=== PATIENT | female | born 1970 | race Caucasian/White ===

== ENCOUNTER → 2019-11-22 09:11 | Outpatient (CLI) | payer OTHER, SELFPAY ==
[2019-11-22 10:51] LABS: Hemoglobin A1c 5.7 % (4.2-6.3)
[2019-11-22 11:11] LABS: ALB/GLOB Ratio 1.1 RATIO (0.9-2.4); AST(SGOT) 26 U/L (15-37); Alanine Aminotransfer ALT/SGPT 42 U/L (13-56); Alkaline Phosphatase 91 U/L (45-117); Anion Gap 7 (5-15); BUN 19 mg/dL (7-18); Calcium,Total 9.5 mg/dL (8.5-10.1); Chloride 102 mmol/L (98-107); Creatinine, Serum 0.95 mg/dL (0.55-1.02); EST Glomerular Filtration Rate 67 mL/min (>60); Est Glom Filt Rate - Afr Amer 81 mL/min (>60); Ferritin 76 ng/mL (8-252); Globulin 3.8 g/dL (2.2-4.2); Glucose 107 mg/dL (74-106); Iron 67 ug/dL (50-170); Iron Binding Capacity,Total 310 ug/dL (250-450); Potassium 3.1 mmol/L (3.5-5.1); Protein, Total 7.8 g/dL (6.4-8.2); Sodium Level 138 mmol/L (136-145)
== END ==
PROVIDERS: PCP Family Medicine; Referring Provider Family Medicine; Visit Provider Family Medicine
DX: R73.9 Hyperglycemia, unspecified (principal); Z83.49 Family history of other endocrine, nutritional and metabolic diseases
CPT/HCPCS: 36415; 80053; 82728; 83036; 83540; 83550

== ENCOUNTER 2020-08-09 15:59 | Outpatient (RCR) | payer OTHER, SELFPAY | END 2020-08-11 23:59 | LOC: EMPH 15:59 | PROVIDERS: PCP Family Medicine; Visit Provider Family Medicine Geriatric Medicine | DX: Z03.818 Encounter for observation for suspected exposure to other biological agents ruled out (principal) | CPT/HCPCS: 87426 ==

== ENCOUNTER 2020-09-05 13:22 | Outpatient (RCR) | payer OTHER, SELFPAY | END 2020-09-10 23:59 | LOC: EMPH 13:22 | PROVIDERS: PCP Family Medicine; Referring Provider Family Medicine Geriatric Medicine; Visit Provider Family Medicine Geriatric Medicine | DX: Z03.818 Encounter for observation for suspected exposure to other biological agents ruled out (principal) | CPT/HCPCS: 87426 ==

== ENCOUNTER 2020-10-08 15:59 | Outpatient (RCR) | payer OTHER, SELFPAY | END 2020-10-11 23:59 | LOC: EMPH 15:59 | PROVIDERS: PCP Family Medicine; Referring Provider Family Medicine Geriatric Medicine; Visit Provider Family Medicine Geriatric Medicine | DX: Z03.818 Encounter for observation for suspected exposure to other biological agents ruled out (principal) | CPT/HCPCS: 87426 ==

== ENCOUNTER 2020-10-17 11:01 | Outpatient (RCR) | payer OTHER, SELFPAY | END 2020-11-11 23:59 | LOC: EMPH 11:01 | PROVIDERS: PCP Family Medicine; Referring Provider Family Medicine Geriatric Medicine; Visit Provider Family Medicine Geriatric Medicine | DX: Z03.818 Encounter for observation for suspected exposure to other biological agents ruled out (principal) | CPT/HCPCS: 87426 ==

== ENCOUNTER 2021-07-06 20:08 | Day surgery (SDC) | payer OTHER, SELFPAY ==
[2021-07-06 20:09] VITALS: BP 155/91; PULSE 74; RESP 16; TEMP 36.5; O2SAT 100; BMI 37.3
--- NOTE | 2021-07-06 21:30 | CT_ITS ---
STUDY: CT ABDOMEN AND PELVIS WITH CONTRAST REASON FOR EXAM: Female, 51 years old. Right lower quadrant pain RADIATION DOSAGE (If Supplied By Facility): CTDIvol = ( 16.28 ) mGy, DLP = ( 1162.17 ) mGycm TECHNIQUE: Transaxial images were obtained from the dome of the diaphragm to the symphysis pubis without oral contrast. IV 100mL Isovue-300 was administered. Sagittal and coronal images were reconstructed. Individualized dose optimization techniques were used for this CT. COMPARISON: None. FINDINGS: The visualized lung bases are unremarkable. The visualized portions of the heart are within normal limits. Normal liver. There are multiple gallstones. Normal spleen. Normal pancreas. Normal bilateral adrenal glands. Normal right kidney. Normal left kidney. There is a small hiatal hernia. Normal small intestine. Normal colon. The appendix is visualized and appears normal. Normal abdominal aorta. Normal inferior vena cava. Normal retroperitoneum. Normal urinary bladder. Uterus is unremarkable. 9.3 x 9.3 cm thin-walled cyst of the right lower quadrant extends to the right adnexa. No associated inflammation or pelvic free fluid. Intermediate density lesion of the left hemipelvis measures 4.9 x 6.0 cm and abuts the uterine fundus as well as the posterior aspect of the left adnexa. Normal abdominal wall. Normal osseous structures. CT/Abdomen/Pelvis W IV Cont ONLY IMPRESSION: 1. 9.3 cm right adnexal cyst. No pelvic free fluid. 2. Intermediate density lesion of the left adnexa versus uterine fundus. ACR White Paper guidelines (Dacosta, et. al. JACR 2020;17(2):248-254) suggest pelvic ultrasound or pelvic MR to further characterize this cyst. Electronically Signed: Rolo Govea MD (Brooks) at 22:59 EDT , Service support ,
[2021-07-06 21:53] LABS: Absolute Lymphocyte Count 1.53 X10^3/uL (0.83-4.51); Absolute Neutrophil Count 6.1 X10^3/uL (2.0-7.7); Basophil# 0.02 X10^3/uL; Basophil% 0.2 % (0-1); Eosinophil# 0.07 X10^3/uL; Eosinophils% 0.8 % (0-5); Hematocrit 36.5 % (37-47); Hemoglobin 12.7 g/dL (12.0-15.0); Lymphocyte # 1.53 X10^3/ul (0.83-4.51); Lymphocyte % 18.4 % (19-41); Mean Corp Hgb Conc 34.8 g/dL (32-36); Mean Corpuscular Hgb 31.1 pg (27.0-32.0); Mean Corpuscular Volume 89.5 fL (81-99); Mean Platelet Vol. 9.9 fl (6.2-12.0); Monocyte# 0.62 X10^3/uL; Monocyte% 7.4 % (0-10); NRBC Flagged by Analyzer 0 % (0-5); Neutrophil # 6.06 X10^3/uL (2.7-7.7); Neutrophil % 72.8 % (47-70); Platelet Count 240 K/mm3 (150-450); RBC Distribution Width CV 12.6 % (11.6-14.6); RBC Distribution Width SD 41.4 fl (35.1-43.9); Red Blood Count 4.08 M/mm3 (4.2-5.4); White Blood Count 8.3 K/mm3 (4.4-11.0)
[2021-07-06] MEDS: Ondansetron 4 MG/2 ML Vial IV (22:03)
[2021-07-06] MEDS: Morphine 4 MG/ML Syringe IV (22:04)
[2021-07-06 22:06] LABS: ALB/GLOB Ratio 0.9 RATIO (0.9-2.4); AST(SGOT) 26 U/L (15-37); Alanine Aminotransfer ALT/SGPT 36 U/L (13-56); Albumin, Serum 3.8 g/dL (3.2-5.0); Alkaline Phosphatase 100 U/L (45-117); Anion Gap 10 (5-15); BUN 16 mg/dL (7-18); BUN/Creat Ratio 24.1 RATIO (10-20); Calcium,Total 9.3 mg/dL (8.5-10.1); Chloride 88 mmol/L (98-107); Creatinine, Serum 0.66 mg/dL (0.55-1.02); EST Glomerular Filtration Rate 100 mL/min (>60); Est Glom Filt Rate - Afr Amer 121 mL/min (>60); Estimated Creatinine Clearance 91.76 ml/min; Globulin 4.3 g/dL (2.2-4.2); Glucose 113 mg/dL (74-106); Lipase 84 U/L (73-393); Potassium 2.9 mmol/L (3.5-5.1); Protein, Total 8.1 g/dL (6.4-8.2); Sodium Level 123 mmol/L (136-145)
[2021-07-06 22:15] LABS: Mucous, Urine 0 SEEN /hpf (<or=2+); Red Blood Cells-Urine 0 SEEN /hpf (0-5)
[2021-07-06 22:25] LABS: Color, Urine Straw (Yellow); Glucose, Dipstick Normal (Normal); Ketone-Dipstick 50 mg/dl (Negative); Leukocyte Esterase-Dipstick Negative /ul (Negative); Nitrite-Dipstick Negative (Negative); Occult Blood-Urine Negative /ul (Negative); Protein-Dipstick Negative (Negative); Specific Gravity, Urine 1.005 (1.002-1.030); Urine Bilirubin Dipstick Negative (Negative); Urine Clarity Clear (Clear); Urine Urobilinogen Normal (Normal)
[2021-07-06 22:31] LABS: Bacteria RARE /hpf (None Seen); Squamous Epithelial Cells - UA 0-5 SEEN /hpf (5-10); White Blood Cells 0-5 SEEN /hpf (0-5)
[2021-07-06] MEDS: 0.9% Normal Saline 1,000 ML 999 ML IV (22:38)
[2021-07-06] MEDS: HYDROmorphone 0.5 MG/0.5 ML SYRINGE IV (22:38)
--- NOTE | 2021-07-06 23:26 | EDS_ITS ---
HPI History of Present Illness Chief Complaint: Abd Pain Narrative Narrative: 51-year-old female presenting with right lower quadrant abdominal pain. She states is been there for about 24 hours. She has nausea. She denies any vomiting, diarrhea. She states she might be constipated. She states she had a normal soft stool earlier today. She denies any fever or chills. Patient does not have any urinary complaints. Patient states that the pain is progressively become worse. PFSH PFS Medical History Hypertension Home Medications chlorthalidone 25 mg PO DAILY 07/06/21 [History Last Taken Unknown] fexofenadine [Aislinn] 30 mg PO DAILY 07/06/21 [History Last Taken Unknown] melatonin mg PO 07/06/21 [History Last Taken Unknown] metoprolol succinate 50 mg PO DAILY 07/06/21 [History Last Taken Unknown] potassium chloride 20 meq PO DAILY 07/06/21 [History Last Taken Unknown] Allergy/AdvReac Type Severity Reaction Status Date / Time No Known Allergies Allergy Unverified 01/05/19 08:55 Social History Smoking Status: Never smoker ROS ROS ED Constitutional Constitutional ED: Denies chills or fever(s) Eyes Eyes: Denies diplopia ENT ENT ED: Denies rhinorrhea or sore throat Cardiovascular Cardiovascular: Denies chest pain or palpitations Respiratory/Chest Respiratory/Chest: Denies cough or dyspnea Gastrointestinal Gastrointestinal: Reports abdominal pain and nausea; Denies constipation, diarrhea or vomiting Genitourinary Genitourinary ED: Denies dysuria or hematuria Musculoskeletal Musculoskeletal: Denies arthralgias or myalgias Integumentary Denies Abrasions or rash Neurologic Neurologic: Denies headache(s) or paresthesias EXAM Physical Exam Const Vital Signs: 07/06/21 20:09 07/06/21 23:31 Temperature 97.7 F L Temperature Source Temporal Pulse Rate 74 Respiratory Rate 16 18 Blood Pressure 155/91 H 159/86 H Blood Pressure Mean 112 110 Pulse Ox 100 Oxygen Delivery Method Room Air Positive well nourished General Appearance ED: NAD; Negative for pallor HEENT Reports moist mucous membranes Negative for trauma Eyes PERRL and EOMs intact bilaterally Resp normal respiratory effort and clear to auscultation bilaterally Cardio regular rate and regular rhythm GI GI Narrative: Tenderness to palpation in the right lower quadrant. Abdomen is nonperitoneal. Back/Spine no CVA tenderness Neuro oriented x3 and CN's II-XII intact bilaterally Sensorium / Orientation: alert Psych mental status grossly normal Skin no rashes or lesions noted General Skin Exam: Negative for jaundice or pallor MDM MDM MDM Narrative Medical decision making narrative: Patient presenting with right lower quadrant abdominal pain. Her CBC shows that she has no leukocytosis. Hemoglobin hematocrit are normal. Platelets are normal. BMP shows that her potassium is low at 2.9. Patient is also hyponatremic at 123. Glucose is 113. No anion gap. LFTs are normal with exception of bilirubin elevated at 1.3. This is new as well. Lipase is negative. Urinalysis is negative for infection but does show urine ketones. Patient was initially given morphine and Zofran. This did not control her pain. She was given 0.5 mg of Dilaudid and still has not addressed her pain. She is going to get a dose of Dilaudid [address] of the abdomen pelvis shows a 9.3 x 9.3 right adnexal cyst as well as a intermediate density lesion of the left hemipelvis measuring 4.9 x 6.0 cm and abuts the uterine fundus as well as a posterior aspect of the adnexa. It is speculated by radiology that this is either of the adnexa or the fundus it is unclear. Given patient has required multiple doses of pain medication I will ob tain transvaginal ultrasound. Patient will be signed out to imcoming ED provider for follow up on U.S. Impression: 1. Right adnexal cyst 9.3 x 9.3 cm 2. Left hemipelvic cyst 4.9 x 6.0 3. Abdominal pain Lab Data Labs: Laboratory Results - last 24 hr 07/06/21 07/06/21 07/06/21 21:07 21:07 21:07 WBC 8.3 RBC 4.08 L Hgb 12.7 Hct 36.5 L MCV 89.5 MCH 31.1 MCHC 34.8 RDW Std Deviation 41.4 RDW Coeff of Armando 12.6 Plt Count 240 MPV 9.9 Immature Gran % (Auto) 0.400 Neut % (Auto) 72.8 H Lymph % (Auto) 18.4 L [place] % (Auto) 7.4 Eos % (Auto) 0.8 Baso % (Auto) 0.2 Absolute Neuts (auto) 6.1 Absolute Lymphs (auto) 1.53 Nucleated RBC % 0 Sodium 123 L Potassium 2.9 L Chloride 88 L Carbon Dioxide 25.0 Anion Gap 10 BUN 16 Creatinine 0.66 Estim Creat Clear Calc 91.76 Est GFR (MDRD) Af Amer 121 Est GFR (MDRD) Non-Af 100 BUN/Creatinine Ratio 24.1 H Glucose 113 H Calcium 9.3 Magnesium 1.7 Total Bilirubin 1.30 H AST 26 ALT 36 Alkaline Phosphatase 100 Total Protein 8.1 Albumin 3.8 Globulin 4.3 H Albumin/Globulin Ratio 0.9 Lipase 84 Urine Color Urine Clarity Urine pH Ur Specific Spencer Urine Protein Urine Glucose (UA) Urine Ketones Urine Occult Blood Urine Nitrite Urine Bilirubin Urine Urobilinogen Ur Leukocyte Esterase Urine RBC Urine WBC Ur Squamous Epith Cells Urine Bacteria Urine Mucus 07/06/21 22:05 WBC RBC Hgb Hct MCV MCH MCHC RDW Std Deviation RDW Coeff of Armando Plt Count MPV Immature Gran % (Auto) Neut % (Auto) Lymph % (Auto) [place] % (Auto) Eos % (Auto) Baso % (Auto) Absolute Neuts (auto) Absolute Lymphs (auto) Nucleated RBC % Sodium Potassium Chloride Carbon Dioxide Anion Gap BUN Creatinine Estim Creat Clear Calc Est GFR (MDRD) Af Amer Est GFR (MDRD) Non-Af BUN/Creatinine Ratio Glucose Calcium Magnesium Total Bilirubin AST ALT Alkaline Phosphatase Total Protein Albumin Globulin Albumin/Globulin Ratio Lipase Urine Color Straw Urine Clarity Clear Urine pH 7.0 Ur Specific Spencer 1.005 Urine Protein Negative Urine Glucose (UA) Normal Urine Ketones 50 H Urine Occult Blood Negative Urine Nitrite Negative Urine Bilirubin Negative Urine Urobilinogen Normal Ur Leukocyte Esterase Negative Urine RBC 0 SEEN Urine WBC 0-5 SEEN Ur Squamous Epith Cells 0-5 SEEN Urine Bacteria RARE Urine Mucus 0 SEEN Radiography Diagnostic Testing: Radiology Impression Abdomen/Pelvis CT 07/06/21 21:30 IMPRESSION: 1. 9.3 cm right adnexal cyst. No pelvic free fluid. 2. Intermediate density lesion of the left adnexa versus uterine fundus. ACR White Paper guidelines (Praneeth, et. al. JACR 2020;17(2):248-254) suggest pelvic ultrasound or pelvic MR to further characterize this cyst. Electronically Signed: Rolo (Butts) Jeferson, MD at 22:59 EDT , Service support , Discharge Plan Triage Chief Complaint: Abd Pain ED Provider: Toy Mustafa Dx/Rx/DC Orders Prescriptions: No Action metoprolol succinate 50 mg Tablet Extended Release 24 Hr 50 mg PO DAILY RF: 0 chlorthalidone 25 mg Tablet 25 mg PO DAILY RF: 0 potassium chloride 20 mEq Tablet Extended Release 20 meq PO DAILY RF: 0 Aislinn 30 mg Tablet 30 mg PO DAILY RF: 0 melatonin 2.5 mg Tablet,Chewable PO RF: 0 Primary Care Provider: Fadi Agustin
[2021-07-06] MEDS: HYDROmorphone 1 MG/ML Syringe IV (23:27)
[2021-07-06 23:31] VITALS: BP 159/86; RESP 18
[2021-07-07] VITALS (9 sets, daily range): BP systolic 126–146; BP diastolic 64–88; PULSE 60–80; RESP 16–18; TEMP 36.2–36.8; O2SAT 96–100
--- NOTE | 2021-07-07 | US_ITS ---
STUDY: ULTRASOUND OF THE FEMALE PELVIS - COMPLETE REASON FOR EXAM: Female, 51 years old patient with pelvic pain. LMP: Unknown. TECHNIQUE: Transabdominal and Transvaginal TECHNICAL QUALITY: Adequate. COMPARISON: CT of the abdomen and pelvis dated 07/06/2021. FINDINGS: The uterus is anteverted and is in a midline position. The uterus measures cm. Normal uterine cervix. The endometrium measures 2.9 mm in thickness, and is heterogeneous (striated). There is no demonstrated endometrial mass. There is a pedunculated left-sided adnexal mass that may arise from the uterus. This measures 3.5 x 4.8 x 4.8 cm. I.U.D. - The patient does not have an I.U.D. The right ovary is visualized. The right ovary measures 10.6 x 10.3 x 9.8 cm. There is a large ovarian cyst that enlarges the ovary measuring 8.9 x 9.6 x 9 cm in size. There is no visualized right adnexal mass or complex lesion. There is normal arterial and normal venous vascularity. The left ovary is visualized. The left ovary measures 2.4 x 1.7 x 1.6 cm. There are multiple follicles of the left ovary without a dominant cyst. There is no visualized left adnexal mass or complex lesion. There is normal arterial and normal venous vascularity. There is no fluid in the cul-de-sac. The pre void volume of the bladder was 1277 ml. Polycystic ovary disease: No. US/Transvaginal Non- IMPRESSION: 1. Large right-sided ovarian cyst. 2. Right adnexal nodule possibly representing a pedunculated uterine leiomyoma though the exact source of the solid nodule is uncertain. Electronically Signed: Ofelia Darby MD at 1:27 EDT , Service support ,
[2021-07-07 00:13] LABS: Magnesium 1.7 mg/dL (1.6-2.6)
[2021-07-07] MEDS: HYDROmorphone 1 MG/ML Syringe IV (01:26)
--- NOTE | 2021-07-07 02:19 | PCM.HP.OB ---
HPI - General HPI Narrative RAS ENRIQUE, is a 51 F who presents with abdominal pain. Reports that she woke up yesterday at 0300 to use the restroom and after returning to bed, he noticed severe right lower abdominal pain. Pain was stabbing in nature. Went to work throughout the day, but pain continued to become more severe. Pain was 10/10 by the time she arrived home. Reports associated nausea. Denies vomiting, fevers, and chills. PFSH PFSH Medical History Hypertension Home Medications chlorthalidone 25 mg PO DAILY 07/06/21 [History Last Taken Unknown] fexofenadine [Aislinn] 30 mg PO DAILY 07/06/21 [History Last Taken Unknown] melatonin mg PO 07/06/21 [History Last Taken Unknown] metoprolol succinate 50 mg PO DAILY 07/06/21 [History Last Taken Unknown] potassium chloride 20 meq PO DAILY 07/06/21 [History Last Taken Unknown] Allergy/AdvReac Type Severity Reaction Status Date / Time No Known Allergies Allergy Unverified 01/05/19 08:55 Social History Smoking Status: Never smoker ROS Constitutional Constitutional: Reports systems reviewed and no addt'l complaints, except as documented; Denies fever(s) or weakness Eyes Eyes: Reports systems reviewed and no addt'l complaints, except as documented ENT HEENT: Reports systems reviewed and no addt'l complaints, except as documented Cardiovascular Cardiovascular: Reports systems reviewed and no addt'l complaints, except as documented; Denies lightheadedness Respiratory/Chest Respiratory/Chest: Reports systems reviewed and no addt'l complaints, except as documented Gastrointestinal Gastrointestinal: Reports systems reviewed and no addt'l complaints, except as documented, abdominal pain and nausea; Denies vomiting Genitourinary Genitourinary: Reports systems reviewed and no addt'l complaints, except as documented Musculoskeletal Musculoskeletal: Reports systems reviewed and no addt'l complaints, except as documented Integumentary Integumentary: Reports systems reviewed and no addt'l complaints, except as documented Neurologic Neurologic: Reports systems reviewed and no addt'l complaints, except as documented Psychiatric Psychiatric: Reports systems reviewed and no addt'l complaints, except as documented Endocrine Endocrinology: Reports systems reviewed and no addt'l complaints, except as documented Hematologic/Lymphatic Hematologic/Lymphatic: Reports systems reviewed and no addt'l complaints, except as documented Allergic/Immunologic Allergic/Immunologic: Reports systems reviewed and no addt'l complaints, except as documented Vital Signs Vital Signs Vital Signs: 07/06/21 20:09 07/06/21 23:31 07/07/21 01:28 Temperature 97.7 F L Temperature Source Temporal Pulse Rate 74 Respiratory Rate 16 18 16 Blood Pressure 155/91 H 159/86 H Blood Pressure Mean 112 110 Pulse Ox 100 Oxygen Delivery Method Room Air Weight Weight: 224 lb 3.362 oz Body Mass Index (BMI) 37.3 Physical Exam Const alert, oriented x3, no apparent distress, average body habitus, healthy appearing and well nourished HEENT normocephalic and moist oral mucous membranes Head and Scalp: atraumatic Eyes PERRL and EOMs intact bilaterally Neck full ROM Resp normal respiratory effort, no retractions and no use of accessory muscles Cardio regular rate and regular rhythm GI soft to palpation and non-distended Inspection: Negative for abdominal distention Palpation: tender RLQ; Negative for guarding or rigid Extremity normal to inspection and full ROM Skin no rashes or lesions noted Neuro no focal motor deficits and no sensory deficits noted Psych mental status grossly normal, affect normal, speech normal and activity/motor behavior normal Labs Labs Labs: Hct 36.5 % (37-47) L Hgb 12.7 g/dL (12.0-15.0) Assessment & Plan (1) Torsion of ovary: PLAN: Patient presents with 24 hours of severe right lower quadrant abdominal pain Ultrasound in the ER demonstrates right ovary measures 10.6 x 10.3 x 9.8cm. There is a large ovarian cyst that enlarges the ovary measuring 8.9 x9.6 x 9 cm in size. Blood flow present on ultrasound, however patient's physical exam and presentation highly concerning for intermittent ovarian torsion Recommendation made to proceed with laparoscopic salpingo-oophorectomy for treatment of ovarian torsion. The nature of the procedure was discussed with the patient. Risks, benefits, indications, and alternatives to the procedure were discussed with the patient including bleeding, infection, and visceral or vascular injury. Agreeable to blood products if medically necessary. Discussed possibility of infection inside abdomen or at incision sites which could require outpatient or inpatient antibiotics. Discussed the possibility of injury to uterus, tubes, ovaries, bowel, and bladder. Aware that this could require intra-op consult to general surgery or urology. Also aware of the possibility of prolonged hospitalization or reoperation. Discussed possibility of need to convert to open to procedure. All questions were answered. Patient voices understanding and agrees to proceed. In procedure is diagnostic laparoscopy, right salpingo-oophorectomy, possible left. 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
--- NOTE | 2021-07-07 02:50 | DCINST_ITS ---
Discharge Instructions Diet Discharge Diet: No restrictions Activity Discharge Activity: May Not Drive (While on narcotic pain medication) and May Shower May resume sexual activity in: 1-2 weeks Lifting Restrictions: No lifting greater than 20 pounds until postop visit Dressing / Incision Call your doctor if your incision/area has: Continuous Slow Oozing, Sudden Increased Bleeding, Increased Pain/ Swelling, Increased Redness, Foul Smelling Discharge and Swelling at the incision site Call your doctor if you observe: Fever of 101 or Higher, Inability to urinate, Using more than 1 pad per hour, Shortness of breath, Dizziness, Fainting spells, Chest pain and Uncontrolled pain Remove Dressing in: 1 week Cleanse incision/area with: Soap & Water Follow Up Care Please Follow Up With: Cece Stone MD When: 2 weeks Test Results: Test results from this visit will be discussed in further detail at your follow-up appointment, if applicable. Discharge Plan Dx/Rx/DC Orders Clinical Impression: Torsion of ovary Disposition Disposition: Acute Care Hospital [facility]
--- NOTE | 2021-07-07 02:51 | PCM.OPRPT ---
Problems Associated Problem List Diagnoses (1) Torsion of ovary: Report of Operation Date of Procedure: 07/07/21 Pre-Operative Diagnosis: Suspected ovarian torsion Post-Operative Diagnosis: Same Surgery/Procedure Performed:: Diagnostic laparoscopy, right salpingo-oophorectomy Description of Surgical Findings:: Large right ovarian cyst present with ovary torsed x5. Otherwise normal tubes and uterus as well as left ovary. Surgeon: Cece Stone product marketing director: Danuta Reaves Type of Anesthesia: General Specimen's removed: Right tube and ovary Estimated Blood Loss (mL): 20 Fluids Replaced: 700 Description of Procedure: The patient was taken to the operating room where general anesthesia was obtained without difficulty. She was prepped and draped in the dorsal lithotomy position with yellofin stirrups. A weighted speculum was placed in the posterior aspect of the vagina and the anterior lip of the cervix was grasped with a single-tooth tenaculum. The cervix was noted to be stenotic therefore a sponge stick was placed in the vagina. Gloves were changed and attention was directed to the abdominal cavity. The umbilicus was grasped with towel clamps. 10cc of 0.25% marcaine was used to anesthetize the umbilicus. A 5mm incision was made at the base of the umbilicus. A veress needle was inserted without difficulty and intra-abdominal placement was confirmed using the water-drop test. The abdomen was insufflated to 15 mmHg and the veress needle was removed. A 5mm optiview trochar was then placed under direct visualization. Initial survey of the abdominal cavity revealed no evidence of trauma. The above findings were noted. A additional 5mm ports were placed in the right and left lower quadrants. The IP ligament was identified. This was grasped, cauterized and transected using the ligasure device. The ovary and tube were amputated. The area was reinspected and good hemostasis was noted. The umbilical incision was extended to acommodate a 10mm port and a specimen bag was inserted. The cyst was drained, placed in the specimen bag, and removed through the port. All instruments were removed from the abdominal cavity. Fascia was closed using 0-vicryl suture. The port sites were closed in a simple interrupted fashion using 3-0 monocryl and sterile dressings were placed. The uterine manipulator was removed. The patient was awakened from anesthesia and taken to the recovery room in stable condition. Complications None apparent Admit VTE Documentation VTE Present on Admission: No VTE Mechan Device Prophylaxis: SCD's VTE Pharm Prophylaxis ordered?: No Procedures Urinary/Genital [id number]: [id number] BS/O Laparotomy (right salpingoophorectomy)
[2021-07-07] MEDS: Bupivacaine 0.25% 30 ML Vial (04:43)
--- NOTE | 2021-07-08 | OV_PTH ---
PATIENT: RAS ENRIQUE LOC: [facility] [place] U#:[id number] AGE/SX: 51/F ROOM: RE07/07/[address]: Dr. Cece Stone MD : 1970 BED: DIS: 07/07/2021 SPEC #: [id number] RECD: 07/08/21 13:12 STATUS: HILARIA RODRIGUEZ #: [id number] SERGEY: 07/08/21 00:[address]: Cece Stone DEPT: SURGICAL PATHOLOGY RECD BY: Fletcher Echeverria ENTERED: 07/08/21 13:12 SP TYPE: OVARY OTHR DR: Dr. 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 AM:cruz 07/09/2021 COMMENT Case has been reviewed in consultation with Dr. Mejia who concurs with the above diagnosis. IDC:SJ MICROSCOPIC DESCRIPTION Slides are reviewed. GROSS DESCRIPTION Received in fixative is one container labeled with the patient's name and designated right tube and ovary. The specimen consists of a cystic ovary measuring 10.5 x 4 x 2 cm. Attached to this is an elongated fragment of light to dark purcell tissue measuring 5 cm in length and 1.6 cm in diameter. No distinct fimbrial end is identified. The external surface of the specimen is inked. Serial sections of the cystic ovary reveal a smooth external and internal lining. The cyst wall averages 0.1 cm in thickness. Tubo-ovarian adhesions are suspected. Machine Guide Base Winder sections are submitted in four cassettes as follows: 1-3 - cystic ovary, 4 - 6 presumed fallopian tube with adjacent hemorrhagic tissue. / AM:cruz 07/08/21 TC:1 [facility]: [id number]
== END 2021-07-07 07:31 | disposition home or self-care (01) ==
LOC: ED 07-07 02:58 → SDC 07-07 03:37 → ACINP 07-07 03:38
PROVIDERS: Emergency Provider Student in an Organized Health Care Education/Training Program; PCP Family Medicine; Visit Provider Obstetrics & Gynecology
PROC: (CPT 49320; principal; 2021-07-07 03:00)
DX: N83.511 Torsion of right ovary and ovarian pedicle (principal); N83.8 Other noninflammatory disorders of ovary, fallopian tube and broad ligament; D27.0 Benign neoplasm of right ovary; Z20.822 Contact with and (suspected) exposure to COVID-19; E11.9 Type 2 diabetes mellitus without complications; I10 Essential (primary) hypertension; E87.1 Hypo-osmolality and hyponatremia; G47.33 Obstructive sleep apnea (adult) (pediatric); Z79.899 Other long term (current) drug therapy
CPT/HCPCS: 00840; 58661; 74177; 76830; 80053; 81001; 83690; 83735; 85025; 87426; 88305; 99284; J7030; Q9967; A4216; J2405

== ENCOUNTER → 2021-08-01 | Outpatient (CLI) | payer OTHER, SELFPAY ==
[2021-08-07 10:13] LABS: HPV APTIMA, High Risk Negative (Negative)
== END | disposition home or self-care (01) ==
LOC: LABSPEC 16:03
PROVIDERS: PCP Family Medicine; Visit Provider Nurse Practitioner Women's Health
DX: Z78.0 Asymptomatic menopausal state (principal)
CPT/HCPCS: 87624; 88175; G0145

== ENCOUNTER 2021-10-03 12:50 | Outpatient (RCR) | payer OTHER, SELFPAY | END 2021-10-11 23:59 | LOC: EMPH 12:50 | PROVIDERS: PCP Family Medicine; Referring Provider Family Medicine Geriatric Medicine; Visit Provider Family Medicine Geriatric Medicine | DX: Z03.818 Encounter for observation for suspected exposure to other biological agents ruled out (principal) | CPT/HCPCS: 87426 ==

== ENCOUNTER 2021-11-19 07:16 | Outpatient (CLI) | payer OTHER, SELFPAY ==
[2021-11-19 08:24] LABS: Anion Gap 8 (5-15); BUN 22 mg/dL (7-18); BUN/Creat Ratio 26.5 RATIO (10-20); Calcium,Total 9.4 mg/dL (8.5-10.1); Chloride 93 mmol/L (98-107); Creatinine, Serum 0.83 mg/dL (0.55-1.02); EST Glomerular Filtration Rate 77 mL/min (>60); Est Glom Filt Rate - Afr Amer 93 mL/min (>60); Glucose 105 mg/dL (74-106); Potassium 3.8 mmol/L (3.5-5.1); Sodium Level 129 mmol/L (136-145)
[2021-11-19 08:43] LABS: Hemoglobin A1c 5.1 % (3.8-5.6)
== END 2021-11-19 23:59 | disposition home or self-care (01) ==
LOC: LAB 07:18
PROVIDERS: PCP Family Medicine; Referring Provider Family Medicine; Visit Provider Family Medicine
DX: E66.01 Morbid (severe) obesity due to excess calories (principal); E87.6 Hypokalemia
CPT/HCPCS: 36415; 80048; 83036

== ENCOUNTER → 2022-02-11 | Outpatient (CLI) | payer OTHER, SELFPAY ==
[2022-02-11 07:48] LABS: Anion Gap 6 (5-15); BUN 23 mg/dL (7-18); BUN/Creat Ratio 26.5 RATIO (10-20); Calcium,Total 9.6 mg/dL (8.5-10.1); Chloride 103 mmol/L (98-107); Creatinine, Serum 0.87 mg/dL (0.55-1.02); EST Glomerular Filtration Rate 73 mL/min (>60); Est Glom Filt Rate - Afr Amer 88 mL/min (>60); Glucose 94 mg/dL (74-106); Sodium Level 137 mmol/L (136-145)
== END | disposition home or self-care (01) ==
LOC: LAB 05:51
PROVIDERS: PCP Family Medicine; Referring Provider Family Medicine; Visit Provider Family Medicine
DX: E87.1 Hypo-osmolality and hyponatremia (principal)
CPT/HCPCS: 36415; 80048

== ENCOUNTER → 2022-07-07 | Outpatient (CLI) | payer OTHER, SELFPAY ==
--- NOTE | 2022-07-07 12:42 | BI_ITS ---
MAMMOGRAPHY - BILATERAL SCREENING REASON FOR EXAM: Female, 52 years old. Routine annual screening examination. PERTINENT HISTORY: Mother with breast cancer. TECHNIQUE: Digital bilateral breast andre (3D mammographic acquisition) in the CC and MLO projections. 2-D mediolateral oblique (MLO) and craniocaudad (CC) views of both breasts were obtained. CAD: Full Field Digital Mammography with Computer Added Detection was performed. COMPARISON: Comparison is made with prior study dated 11/05/2012. FINDINGS: Breast Composition: There are scattered areas of fibroglandular density. There are no dominant masses or suspicious calcifications. No other significant abnormalities are identified. BI/SCRN MAMM (CAD)W/ANDRE BILAT IMPRESSION: Stable bilateral screening mammogram. Yearly follow-up mammogram recommended. (A) ASSESSMENT CATEGORY: BIRADS Category 1: Negative. A letter regarding these results will be sent to the patient by the facility within 30 days. Approximately 10% of breast cancers are not detected by mammography. A normal mammogram should not delay biopsy of a clinically suspicious abnormality. [id number] Electronically Signed: Filiberto Ramírez MD at 13:48 EDT ,
== END | disposition home or self-care (01) ==
LOC: OPBI 12:40
PROVIDERS: PCP Family Medicine; Visit Provider Nurse Practitioner Women's Health
DX: Z12.31 Encounter for screening mammogram for malignant neoplasm of breast (principal); Z80.3 Family history of malignant neoplasm of breast
CPT/HCPCS: 77063; 77067